=== PATIENT | male | born 1945 | race Caucasian/White ===

== ENCOUNTER 2020-08-03 08:59 | Outpatient (CLI) | payer MEDICARE, SELFPAY ==
--- NOTE | ~2020-08-03 | US_ITS ---
EXAMINATION: US aorta [facility] DATE: 08/03/2020 09:27 INDICATION: Abdominal aortic aneurysm screening, diabetes, prior smoker TECHNIQUE: Grayscale, color Doppler, and pulsed Doppler images of the aorta and common iliac arteries were obtained. COMPARISON: None. FINDINGS: Maximum vascular dimensions are as follows: Proximal aorta: 2.7 cm Mid aorta: 1.9 cm Distal aorta: 1.5 cm Right common iliac artery: 0.6 cm Left common iliac artery: 0.7 cm There is no evidence of abdominal aortic aneurysm. IMPRESSION: 1. No sonographic evidence of abdominal aortic aneurysm. Reviewed, dictated and finalized at location A. N SYSTEM OPERATOR
== END 2020-08-03 09:00 | disposition home or self-care (01) ==
PROVIDERS: PCP Family Medicine; Visit Provider Internal Medicine Cardiovascular Disease
DX: E11.59 Type 2 diabetes mellitus with other circulatory complications (principal); I10 Essential (primary) hypertension; Z87.891 Personal history of nicotine dependence; Z13.6 Encounter for screening for cardiovascular disorders
CPT/HCPCS: 76706

== ENCOUNTER 2023-03-19 00:57 | Day surgery (SDC) | payer MEDICARE, SELFPAY ==
[2023-03-05 10:16] VITALS: BMI 21.3
--- NOTE | 2023-03-18 15:35 | PM.HPGS ---
History of Present Illness History of Present Illness Consent: Risks, benefits, and alternatives have been discussed and questions answered. Patient agrees to proceed with procedure. Chief complaint: dysphagia Narrative: Edwin Wynn is a 77 year old male who was referred because of dysphagia. His past medical history of diabetes, hypertension, coronary artery disease s/p CABG, hyperlipidemia, obstructive sleep apnea, and cholecystectomy.? He reports for many years he has intermittent trouble with meat getting stuck in his esophagus and usually he can bring it up on his own.? He mainly only notices this if he does not chew his food thoroughly, or eats too fast.? This would typically occur 1-2 times per year.? But recently had an episode where food was impacted for several hours. Review of Systems Review of Systems: All systems reviewed & are unremarkable except as noted in HPI and below PMFSH Past Medical History Medical History Colon cancer screening Dysphagia Elevated PSA Surgical History Surgical History History of cholecystectomy S/P CABG (coronary artery bypass graft) Social History Social History Social History: Smoking packs per day: 1 Smoking cigarettes per day: 20.0 Years smoked: 38 Smoking pack-years: 38.00 Smoking status: Former smoker Tobacco type: cigarettes Second hand tobacco smoke exposure: No Smoking end date: 07/21/93 Alcohol intake: current Alcohol use details: Occasionally Substance use: never Substance use type: does not use Living arrangements: with family Occupation/Education: retired Gender identity (if verbalized by the patient): Male Sexual Orientation (if Verbalized by the Patient): Straight or Heterosexual Spiritual care concerns: No Meds Home Medications and Allergies Home Medications Medication Instructions Recorded Confirmed Type aspirin 81 mg tablet,delayed 81 mg PO DAILY 07/29/19 03/05/23 History release (Adult Aspirin Regimen) cyclobenzaprine 10 mg tablet 10 mg PO TID 07/29/19 03/05/23 History furosemide 20 mg tablet (Lasix) 20 mg PO QAM 07/29/19 03/05/23 History blood sugar diagnostic #100 ea 04/02/21 02/12/23 Rx nystatin 100,000 unit/gram topical 1 applic topical BID #30 grams 08/28/21 03/05/23 Rx powder tramadol 50 mg tablet 50 mg PO Q6H PRN pain #60 tabs 05/31/22 03/05/23 Rx hydrochlorothiazide 25 mg tablet 25 mg PO DAILY #90 tabs 08/19/22 03/05/23 Rx metoprolol succinate 50 mg 50 mg PO DAILY #90 tabs 09/13/22 03/05/23 Rx tablet,extended release 24 hr (Toprol XL) atorvastatin 40 mg tablet 40 mg PO DAILY #90 tabs 09/23/22 03/05/23 Rx primidone 50 mg tablet 50 mg PO DAILY #90 tabs 10/18/22 03/05/23 Rx blood sugar diagnostic #100 ea 10/31/22 02/12/23 Rx lancets 33 gauge (OneTouch Delica #100 ea 10/31/22 02/12/23 Rx Lancets) metformin 500 mg tablet 500 mg PO DAILY #90 tabs 01/28/23 03/05/23 Rx ramipril 10 mg capsule (Altace) 10 mg PO DAILY #90 caps 01/28/23 03/05/23 Rx Allergies Allergy/AdvReac Type Severity Reaction Status Date / Time morphine Allergy Unknown Nausea and Verified 03/19/23 08:28 Vomiting Exam Const: General: alert Orientation/consciousness: patient oriented x3 Resp: Auscultation: clear to auscultation bilaterally Cardio: Rhythm: regular rhythm GI: GI Palp: Yes Soft to palpation and No Tenderness to palpation present (GI) Neuro: General: patient oriented x3 Assessment and Plan Assessment and plan (1) Dysphagia: Code(s): R13.10 - Dysphagia, unspecified Status: Acute Assessment and Plan: EGD with possible biopsy or dilatation or cautery.
[2023-03-19 08:30] VITALS: BP 142/60; PULSE 56; RESP 18; TEMP 36.3; O2SAT 99
--- NOTE | 2023-03-19 08:36 | WPDANESEPPF ---
Anes - Initial Pre Proc Eval Procedure: Operation Date: 03/19/23 09:45 Proposed Procedures p Esophagogastroduodenoscopy - Edwin Seals MD Date/Time: 03/19/23 08:36 Surgeon: Edwin Seals MD Pre Op Diagnosis: dysphagia Patient Data Age: 77 Gender: M Height: 1.73 m Weight: 63.2 kg Last Vital Signs Temp 97.4 F L 03/19/23 08:30 Pulse 56 L 03/19/23 08:30 Resp 18 03/19/23 08:30 BP 142/60 H 03/19/23 08:30 Pulse Ox 99 03/19/23 08:30 O2 Del Method Room Air 03/19/23 08:30 Allergies Allergy/AdvReac Type Severity Reaction Status Date / Time morphine Allergy Unknown Nausea and Verified 03/19/23 08:28 Vomiting Home Medications Medication Instructions Recorded Confirmed Type aspirin 81 mg tablet,delayed 81 mg PO DAILY 07/29/19 03/05/23 History release (Adult Aspirin Regimen) cyclobenzaprine 10 mg tablet 10 mg PO TID 07/29/19 03/05/23 History furosemide 20 mg tablet (Lasix) 20 mg PO QAM 07/29/19 03/05/23 History blood sugar diagnostic #100 ea 04/02/21 02/12/23 Rx nystatin 100,000 unit/gram topical 1 applic topical BID #30 grams 08/28/21 03/05/23 Rx powder tramadol 50 mg tablet 50 mg PO Q6H PRN pain #60 tabs 05/31/22 03/05/23 Rx hydrochlorothiazide 25 mg tablet 25 mg PO DAILY #90 tabs 08/19/22 03/05/23 Rx metoprolol succinate 50 mg 50 mg PO DAILY #90 tabs 09/13/22 03/05/23 Rx tablet,extended release 24 hr (Toprol XL) atorvastatin 40 mg tablet 40 mg PO DAILY #90 tabs 09/23/22 03/05/23 Rx primidone 50 mg tablet 50 mg PO DAILY #90 tabs 10/18/22 03/05/23 Rx blood sugar diagnostic #100 ea 10/31/22 02/12/23 Rx lancets 33 gauge (OneTouch Delica #100 ea 10/31/22 02/12/23 Rx Lancets) metformin 500 mg tablet 500 mg PO DAILY #90 tabs 01/28/23 03/05/23 Rx ramipril 10 mg capsule (Altace) 10 mg PO DAILY #90 caps 01/28/23 03/05/23 Rx Patient hx anesthesia problems: none Family hx anesthesia problems: none Results Review: All pre-operative results and documents have been reviewed as part of the pre-operative evaluation. [facility] Past Medical History Medical History Colon cancer screening Dysphagia Elevated PSA Surgical History Surgical History History of cholecystectomy S/P CABG (coronary artery bypass graft) Social History Social History Social History: Smoking packs per day: 1 Smoking cigarettes per day: 20.0 Years smoked: 38 Smoking pack-years: 38.00 Smoking status: Former smoker Tobacco type: cigarettes Second hand tobacco smoke exposure: No Smoking end date: 07/21/93 Alcohol intake: current Alcohol use details: Occasionally Substance use: never Substance use type: does not use Living arrangements: with family Occupation/Education: retired Gender identity (if verbalized by the patient): Male Sexual Orientation (if Verbalized by the Patient): Straight or Heterosexual Spiritual care concerns: No Anes - Eval Final PreProcedure Day of Procedure 03/19/23 08:36 Patient weight: normal Heart: regular rate and rhythm Lungs: clear to auscultation Airway: Mallampati scale class II Neurological: alert and oriented Last oral intake: >/= 8 hours ASA classification: III Emergent: no Anesthetic plan: proceed Anesthesia type and monitoring: general GIVS and standard monitoring Results Review: All pre-operative results and documents have been reviewed as part of the pre-operative evaluation. Informed Consent: The patient's anesthetic plan and its attendant risks and benefits were discussed with the patient/family/POA. Questions were solicited and answers provided to the satisfaction of the patient/family/POA.
[2023-03-19] MEDS: LACTATED RINGERS 1,000 ML 150 ML IV CONT (08:39)
[2023-03-19 08:44] LABS: Glucose Point of Care 134 mg/dl (65-105)
[2023-03-19 09:28] VITALS: BP 90/46; PULSE 50; RESP 20; O2SAT 96
[2023-03-19 09:38] VITALS: BP 97/53; PULSE 53; RESP 20; O2SAT 96
[2023-03-19 09:48] VITALS: BP 118/61; PULSE 50; RESP 19; O2SAT 99
== END 2023-03-19 09:58 | disposition home or self-care (01) ==
PROVIDERS: PCP Family Medicine; Visit Provider Internal Medicine Gastroenterology
PROC: 0DJ08ZZ Inspection of Upper Intestinal Tract, Via Natural or Artificial Opening Endoscopic (ICD-10-PCS; CPT 43235; principal; 2023-03-19 09:45)
DX: K22.2 Esophageal obstruction (principal); K21.00 Gastro-esophageal reflux disease with esophagitis, without bleeding; K29.70 Gastritis, unspecified, without bleeding; Z79.82 Long term (current) use of aspirin; Z79.84 Long term (current) use of oral hypoglycemic drugs; Z95.1 Presence of aortocoronary bypass graft; Z87.891 Personal history of nicotine dependence
CPT/HCPCS: 43249; 43239; 82948; 87081; 88305; C1726; J2704; J7120